=== PATIENT | female | born 1990 | race Caucasian/White ===

== ENCOUNTER 2018-04-03 22:53 | Outpatient (CLI) | payer MEDICAID ==
[~2018-04-03] VITALS: Ht 149.9 cm; Wt 56.4 kg
[~2018-04-03 22:53] MED LIST: CLON1TAB PO; FLUO10CA13 PO; FLUO10CA7 PO; HYDR200T72 PO; LISI5TAB7 PO
[2018-04-03 23:11] VITALS: BP 121/67
== END 2018-04-03 23:35 | disposition home or self-care (01) ==
LOC: LDOP 22:53
PROVIDERS: ATTEND Obstetrics & Gynecology
DX: O26.899 Other specified pregnancy related conditions, unspecified trimester (principal); R10.9 Unspecified abdominal pain; Z3A.00 Weeks of gestation of pregnancy not specified
CPT/HCPCS: 59025; 99201; G0463

== ENCOUNTER 2018-05-22 00:12 | Outpatient (CLI) | payer MEDICAID ==
[~2018-05-22] VITALS: Ht 149.9 cm; Wt 57.0 kg
[2018-05-22] MEDS ORDERED: OXYcodone/APAP 5/325MG TABLET ONE (00:40)
[2018-05-22 00:50] LABS: CULTURE INDICATED? YES; MICROSCOPIC INDICATED
[2018-05-22 00:57] LABS: AMPHETAMINE SCREEN, URINE Negative (Negative); BARBITURATE SCREEN, URINE Negative (Negative); BENZODIAZEPINE SCREEN, URINE Negative (Negative); CANNABINOID SCREEN, URINE Positive (Negative); COCAINE SCREEN, URINE Negative (Negative); METHADONE SCREEN, URINE Negative (Negative); OPIATE SCREEN, URINE Negative (Negative)
[2018-05-22 00:58] VITALS: BP 114/71
[2018-05-22] MEDS ORDERED: OXYcodone/APAP 5/325MG TABLET PO ONE (01:00)
== END 2018-05-22 01:40 | disposition home or self-care (01) ==
LOC: LDOP 00:12
PROVIDERS: ATTEND Obstetrics & Gynecology
DX: O26.893 Other specified pregnancy related conditions, third trimester (principal); R10.9 Unspecified abdominal pain; Z3A.31 31 weeks gestation of pregnancy
CPT/HCPCS: 59025; 80307; 81001; 87086; 99211; G0463

== ENCOUNTER 2018-06-05 14:47 | Outpatient (CLI) | payer MEDICAID ==
[~2018-06-05] VITALS: Ht 149.9 cm; Wt 58.6 kg
[2018-06-05 15:00] VITALS: BP 123/76
[2018-06-05 15:37] LABS: AMPHETAMINE SCREEN, URINE Negative (Negative); BARBITURATE SCREEN, URINE Negative (Negative); BENZODIAZEPINE SCREEN, URINE Negative (Negative); CANNABINOID SCREEN, URINE Negative (Negative); COCAINE SCREEN, URINE Negative (Negative); METHADONE SCREEN, URINE Negative (Negative); OPIATE SCREEN, URINE Negative (Negative)
== END 2018-06-05 15:53 | disposition home or self-care (01) ==
LOC: LDOP 14:47
PROVIDERS: ATTEND Obstetrics & Gynecology
DX: O26.893 Other specified pregnancy related conditions, third trimester (principal); R10.9 Unspecified abdominal pain; Z3A.33 33 weeks gestation of pregnancy
CPT/HCPCS: 59025; 80307; 99211; G0463

== ENCOUNTER 2020-02-04 09:19 | Emergency (ER) | payer BC, MEDICAID ==
[~2020-02-04] VITALS: Ht 149.9 cm; Wt 46.6 kg
[~2020-02-04 09:19] MED LIST changes: +FLUO10CA15 PO; -FLUO10CA7 PO
[2020-02-04 09:27] VITALS: BP 117/55
== END 2020-02-04 09:55 ==
LOC: ED 09:49
DX: S71.111D Laceration without foreign body, right thigh, subsequent encounter (principal); Z48.01 Encounter for change or removal of surgical wound dressing; X58.XXXD Exposure to other specified factors, subsequent encounter
CPT/HCPCS: 99281